=== PATIENT | female | born 1965 | race Caucasian/White ===

== ENCOUNTER → 2021-02-04 09:54 | Outpatient (CLI) | payer OTHER, SELFPAY ==
--- NOTE | ~2021-02-04 | MR_ITS ---
EXAMINATION: MR shoulder RT wo con DATE: 02/04/2021 10:36 INDICATION: Right shoulder impingement syndrome. Right shoulder pain and limited range of motion. TECHNIQUE: Magnetic resonance imaging (MRI) of the right shoulder was performed without intravenous c ontrast. Sequences included axial PD-weighted FS FSE, coronal oblique PD-weighted FS FSE, coronal obl ique T2-weighted FS FSE, sagittal PD-weighted FS FSE, and sagittal T1-weighted SE. COMPARISON: None. FINDINGS: Coracoacromial arch: The acromion undersurface is flat in morphology (type I). The coracoacromial ligament is normal. Mode rate acromioclavicular osteoarthritis. Rotator cuff: Moderate supraspinatus and mild infraspinatus tendinopathy. There is a small mild intrasubstance tear measuring approximately 4 mm AP and involving up to one third of the tendon thickness at the anterio r most middle facet footplate of the infraspinatus tendon. Mild tendinopathy without discrete tear of the cephalad aspect of the distal subscapularis tendon. The teres minor tendon is normal. No asymmet kinga rotator cuff muscle atrophy. There is an ovoid T1 hyperintense saturating fatty intramuscular mas s within the subscapularis muscle belly which measures 4.4 x 2.8 x 1.3 cm. There is somewhat serpigin ous pattern of lower T1 signal within the mass which could represent either vessels or small soft tis uriel component. Biceps tendon, glenoid labrum and glenohumeral cartilage: superior, anterior to posterior tear of the glenoid labrum (SLAP tear) which extends from the 1:00 po sition anteriorly and extends posteriorly to the 10:30 position. The tear also appears to extend into the medial aspect intramuscular portion of the long head biceps tendon which is otherwise normal. Gl enohumeral cartilage is normal. Fluid: Physiologic amount of fluid in the glenohumeral joint and biceps tendon sheath. No loose osteochondra l bodies. Small amount of fluid in the subacromial/subdeltoid bursa consistent with mild bursitis. Bones: Normal marrow signal with no edema, fracture or abnormal marrow replacing process. IMPRESSION: 1. 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 Differenti al would include low-grade liposarcoma, simple lipoma with fat necrosis and other benign lipoma varia nts including hibernoma, chondroid lipoma, angiolipoma or lipoleiomyoma. 2. Moderate supraspinatus and mild infraspinatus and subscapularis tendinopathy with small mild intra substance tear at the middle facet insertion of the infraspinatus tendon. 3. SLAP tear of the superior glenoid labrum and extending into the intra-articular long head biceps t endon. 4. Moderate acromioclavicular osteoarthritis with mild underlying subacromial/subdeltoid bursitis. Reviewed, dictated and finalized at location A. IMPRESSION: 1. 4.4 x 2.8 x 1.3 cm atypical intramuscular lipoma within the subscapularis mu scle belly. Differential would include low-grade liposarcoma, simple lipoma wit h fat necrosis and other benign lipoma variants including hibernoma, chondroid lipoma, angiolipoma or lipoleiomyoma. 2. Moderate supraspinatus and mild infraspinatus and subscapularis tendinopathy with small mild intrasubstance tear at the middle facet insertion of the infra spinatus tendon. 3. SLAP tear of the superior glenoid labrum and extending into the intra-articu lar long head biceps tendon. 4. Moderate acromioclavicular osteoarthritis with mild underlying subacromial/s ubdeltoid bursitis.
== END ==
PROVIDERS: Visit Provider Orthopaedic Surgery Hand Surgery
DX: M75.41 Impingement syndrome of right shoulder (principal); S43.431A Superior glenoid labrum lesion of right shoulder, initial encounter; X58.XXXA Exposure to other specified factors, initial encounter; M19.011 Primary osteoarthritis, right shoulder
CPT/HCPCS: 73221

== ENCOUNTER → 2021-12-11 16:02 | Outpatient (CLI) | payer OTHER, SELFPAY ==
--- NOTE | ~2021-12-11 | XR_ITS ---
EXAMINATION: XR chest 2V 12/11/2021 16:24 INDICATION: Persistent cough PROCEDURE: 2 view chest COMPARISON: No prior studies for comparison. FINDINGS: The lungs are clear. The cardiomediastinal silhouette is within normal limits. There are no pleural effusions. There is no pneumothorax suspected. IMPRESSION: 1: NO ACUTE CARDIOPULMONARY DISEASE. Reviewed, dictated and finalized at location B.
== END ==
PROVIDERS: PCP Family Medicine; Visit Provider Family Medicine
DX: R05.3 Chronic cough (principal)
CPT/HCPCS: 71046

== ENCOUNTER → 2022-01-01 15:58 | Outpatient (CLI) | payer OTHER, SELFPAY ==
--- NOTE | ~2022-01-01 | MM_ITS ---
EXAMINATION: MM screening sb BI w deirdre HISTORY: Screening mammogram TECHNIQUE: Craniocaudal and mediolateral oblique 3-D tomosynthesis images were obtained and synthetic 2-D images were generated. CAD analysis was submitted and interpreted. COMPARISON: 01/11/2018 bilateral screening mammogram BREAST PARENCHYMAL COMPOSITION: There are scattered areas of fibroglandular density. Differential is less dense residual air within the technologist per second with her physician is diagnostic contrast There is particularly in the diminished inspiratory there is some with urinalysis There is an mass is suggested as result formation is extensive facial paralysis there are coarse FINDINGS: There are 2 small circumscribed opacities in the left axillary tail with configuration cons istent with benign intramammary lymph nodes. There is no evidence of suspicious mass, calcification, or architectural distortion to suggest malignancy in either breast. There has been no suspicious inte rval change. IMPRESSION: 1. No mammographic evidence of malignancy. 2. Recommend routine screening mammography in one year. BI-RADS Category 2: Benign finding(s). Reviewed, dictated and finalized at location A.
== END ==
PROVIDERS: PCP Family Medicine; Visit Provider Family Medicine
DX: Z12.31 Encounter for screening mammogram for malignant neoplasm of breast (principal)
CPT/HCPCS: 77063; 77067

== ENCOUNTER → 2023-07-28 09:56 | Outpatient (CLI) | payer SELFPAY ==
--- NOTE | ~2023-07-28 | XR_ITS ---
XR chest 2V DATE: 07/28/2023 10:23 INDICATION: Cough TECHNIQUE: 2 views COMPARISON: 12/11/2021 2 view chest FINDINGS: Normal heart size. No hilar or mediastinal enlargement. No pulmonary infiltrate or consolid ation, pleural effusion or pulmonary vascular congestion or pneumothorax. There is minimal thoracic dextro scoliosis and moderately prominent degenerative spurring of the thor acic spine. IMPRESSION: No active cardiopulmonary disease Reviewed, dictated and finalized at location L. 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
== END ==
PROVIDERS: PCP Family Medicine; Visit Provider Family Medicine
DX: R05.9 Cough, unspecified (principal)
CPT/HCPCS: 71046

== ENCOUNTER 2023-11-11 13:44 | Emergency (ER) | payer OTHER, SELFPAY ==
--- NOTE | ~2023-11-11 | XR_ITS ---
EXAMINATION: XR chest 2V DATE: 11/11/2023 15:55 INDICATION: Dyspnea. TECHNIQUE: Frontal and lateral views of the chest were obtained. COMPARISON: Chest 2 views 07/28/23 FINDINGS: There is mild atelectasis at left lung base. No pleural effusion or pneumothorax. The heart size is normal. There is mild chronic anterior wedging of multiple vertebral bodies. IMPRESSION: 1. Mild atelectasis at left lung base. Reviewed, dictated and finalized at location E.
--- NOTE | ~2023-11-11 | CT_ITS ---
EXAMINATION: CTA brain carotid DATE: 11/11/2023 15:50 INDICATION: Intermittent numbness and tingling of a left-sided mouth. Numbness of the left hand and b ilateral legs. TECHNIQUE: Computed tomographic angiography (CTA) of the head was performed without and with 100 mL O mnipaque-350 intravenous contrast. CTA of the neck was performed with intravenous contrast. Automated exposure control and iterative reconstruction technique were employed. The dose-length product was 1 788.67 mGy-cm. Maximum intensity projection and volume rendered 3D-reconstructions were created by kirk wall technologist on a separate workstation. COMPARISON: None. FINDINGS: HEAD CTA: There is no intracranial hemorrhage, acute infarction, or abnormal intracranial mass lesion . The ventricles are normal in size. There is mild mucosal thickening in the ethmoid sinuses. The mas toid air cells are normal. The orbits are normal. The vertebral arteries are codominant. There is a s ignificant stenosis of basilar artery or the posterior cerebral arteries. The posterior communicating arteries are normal. There is no significant stenosis of intracranial internal carotid arteries or a nterior or middle cerebral arteries. Anterior communicating artery is normal. There is no aneurysm. NECK CTA: There are no pathologically enlarged lymph nodes. There is no significant stenosis of the v ertebral arteries. There is minimal plaque in the proximal internal carotid arteries. There is 0% tona nosis of the proximal right internal carotid artery relative to normal distal artery lumen diameter ( NASCET criteria). There is 0% stenosis of the proximal left internal carotid artery relative to estefany l distal artery lumen diameter. There is severe cervical spondylosis. IMPRESSION: 1. Normal brain. No aneurysm or significant intracranial arterial stenosis. 2. 0% stenosis of the proximal internal carotid arteries relative to normal distal artery lumen diame ters (NASCET criteria). Reviewed, dictated and finalized at location E. IMPRESSION: 1. Normal brain. No aneurysm or significant intracranial arterial stenosis. 2. 0% stenosis of the proximal internal carotid arteries relative to normal dis bebe artery lumen diameters (NASCET criteria).
[2023-11-11 13:51] VITALS: BP 194/64; PULSE 78; RESP 20; TEMP 36.2; O2SAT 98
--- NOTE | 2023-11-11 14:59 | ED.NEUROSD ---
HPI - Neuro Symptoms/Deficit General Chief Complaint: Neuro Symptoms/Deficit <Maggie Church PA-C - Last Filed: 11/11/23 15:11> Stated Complaint: numbness to lips and fingertips <Maggie Church PA-C - Last Filed: 11/11/23 15:11> Time Seen by Provider: 11/11/23 15:52 <Maggie Church PA-C - Last Filed: 11/11/23 15:11> Focused HPI: 58 y/o F presents to the ED for evaluation of numbness and tingling to her lips and tip of her tongue x1.5 months, Left 3rd and 4th digits numbness and tingling for the past 2 days, and leg numbness and tingling today. She is also reporting intermittent burning to her R shoulder blade for a month and a half as well as intermittent blurred vision. Denies recent head injuries or trauma, chest pain, neck or back pain. States she has some intermittent dyspnea and cough/ GENERAL: Well-appearing, well-nourished, and in no acute distress. HEAD: Normocephalic, atraumatic. CHEST: Clear to auscultation. ?No respiratory distress. HEART: Regular rate and rhythm.? NEURO: ?Alert and oriented x3. CN II-XII intact. Strength 5/5 in BUE and BLE. Sensation intact throuhgout. Patient screened in triage and initial orders placed.? ?Additional care and disposition to be based upon?diagnostic testing and treatment. <Maggie Church PA-C - Last Filed: 11/11/23 15:11> Source: patient <Anatoly Potter MD - Last Filed: 11/11/23 16:58> Mode of arrival: ambulatory <Anatoly Potter MD - Last Filed: 11/11/23 16:58> Limitations: no limitations <Anatoly Potter MD - Last Filed: 11/11/23 16:58> History of Present Illness HPI Narrative: 58-year-old here with complaints of numbness and tingling sensation around the mouth for past 1 and half months or even longer at times tingling sensation to her left fingers and her feet. Patient states that she was having the symptoms at work and her boss recommended her to go to urgent care. She denies having any headache, chest pain. She also mentions that she is scheduled to see her primary doctor sometime next week for elevated blood pressure. <Anatoly Potter MD - Last Filed: 11/11/23 16:58> Onset (ago): month(s) (105) <Anatoly Potter MD - Last Filed: 11/11/23 16:58> Severity: mild <Anatoly Potter MD - Last Filed: 11/11/23 16:58> Relieving factors: none <Anatoly Potter MD - Last Filed: 11/11/23 16:58> Exacerbating factors: none <Anatoly Potter MD - Last Filed: 11/11/23 16:58> Context: gradual onset <Anatoly Potter MD - Last Filed: 11/11/23 16:58> On Anticoagulants: No <Anatoly Potetr MD - Last Filed: 11/11/23 16:58> Associated symptoms: denies other symptoms <Anatoly Potter MD - Last Filed: 11/11/23 16:58> Related Data Allergies/Adverse Reactions: Allergies Allergy/AdvReac Type Severity Reaction Status Date / Time codeine Allergy Unknown Verified 04/17/18 14:08 <Maggie Church PA-C - Last Filed: 11/11/23 15:11> Review of Systems Review of Systems: All systems reviewed & are unremarkable except as noted in HPI and below <Anatoly Potter MD - Last Filed: 11/11/23 16:58> Constitutional: Constitutional: Reports no additional constitutional complaints <Anatoly Potter MD - Last Filed: 11/11/23 16:58> Eyes: Eyes: Reports no additional eye complaints <Anatoly Potter MD - Last Filed: 11/11/23 16:58> ENT: Reports system reviewed and no additional complaints, except as documented <Anatoly Potter MD - Last Filed: 11/11/23 16:58> Cardiovascular: Cardiovascular: Reports no additional cardiovascular complaints <Anatoly Potter MD - Last Filed: 11/11/23 16:58> Respiratory: Respiratory: Reports no additional respiratory complaints <Anatoly Potter MD - Last Filed: 11/11/23 16:58> Gastrointestinal: Gastrointestinal: Reports no additional gastrointestinal complaints <Anatoly Potter MD - Last Filed: 11/11/23 16:58> Musculoskeletal: Musculoskeletal: Reports no additional
--- NOTE | 2023-11-11 15:03 | ECG_ITS ---
SEE SCANNED COPY FOR CONFIRMED REPORT MTDD
[2023-11-11 15:19] LABS: Basophils Absolute Auto 0.1 K/mm3 (0.0-0.1); Basophils Percent Auto 0.6 % (0.2-1.2); Eosinophils Absolute Auto 0.2 K/mm3 (0-0.3); Eosinophils Percent Auto 2.2 % (0-4.4); Hemoglobin 13.7 g/dL (12.0-15.0); Immature Granulocyte Absolute 0.02 K/mm3 (0.00-0.031); Immature Granulocyte Percent A 0.3 % (0-0.5); Lymphocytes Absolute Auto 1.81 K/mm3 (0.9-3.2); Lymphocytes Percent Auto 23.1 % (18.3-44.2); Mean Corpuscular HGB Conc 31.9 g/dl (32-36); Mean Corpuscular Hemoglobin 29.3 pg (26-34); Mean Corpuscular Volume 91.9 fl (80-100); Mean Platelet Volume 9.3 fl (7.4-10.4); Monocytes Absolute Auto 0.5 K/mm3 (0.1-0.6); Monocytes Percent Auto 6.5 % (2.6-8.5); Neutrophils Absolute Auto 5.3 K/mm3 (1.3-6.7); Neutrophils Percent Auto 67.3 % (45.5-73.1); Platelet Count Result 311 k/mm3 (150-375); Red Blood Count 4.68 M/mm3 (4.2-5.4); Red Cell Distribution Width 12.7 % (11.5-14.5); White Blood Count 7.8 K/mm3 (4.5-10.0)
[2023-11-11 15:30] LABS: INR 0.9; Prothrombin Time 12.9 Seconds (11.1-14.7)
[2023-11-11 15:31] LABS: Alanine Aminotransferase 19 U/L (6-35); Albumin Level 4.5 g/dL (3.5-5.1); Alkaline Phosphatase 89 U/L (38-126); Anion Gap 2 mmol/L (4-12); Aspartate Amino Transferase 27 U/L (14-36); Bilirubin,Total 0.4 mg/dL (0.2-1.3); Blood Urea Nitrogen 19 mg/dL (7-17); Calcium 9.7 mg/dL (8.4-10.2); Carbon Dioxide 31 mmol/L (22-30); Chloride 107 mmol/L (98-107); Estimated CRCL calculation 93 ml/min; Estimated Glomerular Filt Rate > 60; Glucose 104 mg/dL (65-110); Partial Thromboplastin Time 29.3 Seconds (22.3-36.8); Potassium 4.5 mmol/L (3.4-5.0); Sodium 140 mmol/L (137-145)
[2023-11-11 15:41] LABS: Troponin I < 0.012 ng/mL (0.000-0.034)
[2023-11-11 15:50] LABS: Appearance Urine Cloudy (Clear); Bacteria Urine None Seen /hpf; Bilirubin Urine Negative (Negative); Blood Urine Negative (Negative); Color Urine Yellow (Yellow); Glucose Urine UA Negative (Negative); Ketones Urine Negative (Negative); Leukocyte Esterase Ur Negative LEU/UL (Negative); Nitrate Urine Negative (Negative); Non Pathogenic Casts 0-2; Protein Urine Negative (Negative); Specific Grav Ur 1.022 (1.001-1.035); Squamous Epithelial Cell Urine Few /hpf (Few); Urobilinogen Urine 0.2 mg/dL (<2.0); WBC Urine 0-5 /hpf (0-3)
[2023-11-11 15:52] LABS: Add Urine Microscopic? YES
[2023-11-11 16:41] VITALS: BP 174/78; PULSE 80; RESP 16; TEMP 36.6; O2SAT 99
[2023-11-11 17:02] VITALS: BP 156/75; PULSE 82; RESP 16; O2SAT 100
== END 2023-11-11 17:14 | disposition home or self-care (01) ==
PROVIDERS: Physician Assistant; Emergency Provider Family Medicine; PCP Family Medicine
DX: R20.0 Anesthesia of skin (principal); I10 Essential (primary) hypertension
CPT/HCPCS: 36415; 70496; 70498; 71046; 80053; 81001; 84484; 85025; 85610; 85730; 93005; 99284; Q9967